=== PATIENT | female | born 1975 | race Caucasian/White ===

== ENCOUNTER → 2020-08-22 12:07 | Outpatient (BNVA) | payer OTHER, SELFPAY | PROVIDERS: PCP Physician Assistant; Visit Provider Surgery | DX: Z01.818 Encounter for other preprocedural examination (principal); E66.9 Obesity, unspecified; E66.01 Morbid (severe) obesity due to excess calories; R06.02 Shortness of breath; K91.2 Postsurgical malabsorption, not elsewhere classified; Z90.3 Acquired absence of stomach [part of] ==

== ENCOUNTER 2020-08-29 09:25 | Outpatient (REF) | payer OTHER, SELFPAY ==
--- NOTE | ~2020-08-29 | XR_ITS ---
EXAMINATION: XR CHEST CLINICAL INFORMATION: Shortness of breath. COMPARISON: None TECHNIQUE: Two views of the chest were obtained. FINDINGS: There is no evidence of acute parenchymal disease, pneumothorax, or pleural effusion. Heart normal size. No evidence of pulmonary edema. There is unfolding of the thoracic aorta. XR/XR chest 2V IMPRESSION: No acute disease.
--- NOTE | 2020-08-29 10:21 | ECG_ITS ---
Test Reason : SOB Blood Pressure : / mmHG Vent. Rate : 080 BPM Atrial Rate : 080 BPM P-R Int : 172 ms QRS Dur : 100 ms QT Int : 400 ms P-R-T Axes : 053 -01 017 degrees QTc Int : 461 ms Normal sinus rhythm Normal ECG No previous ECGs available Referred By: Angie Bunch Electronically Signed By:SIA MASTERS MD
[2020-08-29 10:32] LABS: MANUAL DIFF FLAG NO
[2020-08-29 10:39] LABS: Basophils Absolute Auto 0.1 X10*3/uL (0.0-0.2); Basophils Percent Auto 0.6 % (0-2); Eosinophils Absolute Auto 0.3 X10*3/uL (0.0-0.4); Eosinophils Percent Auto 4.2 % (0-4); Hematocrit 40.4 % (37-47); Hemoglobin 12.6 g/dl (12.0-16.0); Imm Gran Abs Auto 0.03 X10*3/uL (0.00-0.03); Imm Gran Pct Auto 0.4 % (0.0-0.4); Lymphocytes Absolute Auto 2.7 X10*3/uL (1.2-4.9); Lymphocytes Percent Auto 33.7 % (20-40); Mean Corpuscular HGB Conc 31.2 g/dl (31.0-35.0); Mean Corpuscular Hemoglobin 28.8 pg (27.0-33.0); Mean Corpuscular Volume 92.4 fL (80-98); Mean Platelet Volume 10.5 fL (9.4-12.3); Monocytes Absolute Auto 0.5 X10*3/uL (0.1-1.2); Neutrophils Absolute Auto 4.3 X10*3/uL (2.0-8.3); Neutrophils Percent Auto 55.1 % (45-73); Platelet Count 336 X10*3/uL (160-400); Red Blood Count 4.37 X10*6/uL (4.20-5.50); Red Cell Distribution Width 15.7 % (11.0-16.0); White Blood Count 7.9 X10*3/uL (4.8-10.8)
[2020-08-29 11:07] LABS: Alanine Aminotransferase 16 U/L (0-31); Albumin Level 4.2 g/dL (3.5-5.0); Alkaline Phosphatase 87 U/L (39-117); Anion Gap 13 (12-20); Aspartate Amino Transferase 16 U/L (5-31); Bilirubin Total 0.3 mg/dL (0.0-1.0); Blood Urea Nitrogen 13 mg/dL (9-16); C Reactive Protein 2.98 mg/dL (< or = 0.50); Calcium 9.7 mg/dL (8.4-10.2); Carbon Dioxide 31 mmol/L (22-29); Chloride 102 mmol/L (96-108); Cholesterol 253 mg/dL; Estimated Glomerular Filt Rate > 60; Glucose Fasting 99 mg/dL (60-99); HDL Cholesterol 61 mg/dL; Iron 69 mcg/dL (30-160); LDL Cholesterol Calculated 182 mg/dl; Percent Iron Saturation 20 % (15-50); Potassium 4.6 mmol/L (3.3-5.1); Sodium 141 mmol/L (135-145); Total Iron Binding Capacity 343 mcg/dL (228-428); Total Protein 7.5 g/dL (6.5-8.0); Triglycerides 53 mg/dL; Unsaturated Iron Binding 274 ug/dL
[2020-08-29 11:15] LABS: Estimated Average Glucose 100 mg/dL; Hemoglobin A1c % 5.1 %
[2020-08-29 11:33] LABS: Vitamin D 25-OH Total 29.6 ng/mL (>30)
[2020-08-29 11:44] LABS: Vitamin B12 701 pg/mL (200-900)
[2020-08-30 13:12] LABS: Calcium (PTHI) 9.7 mg/dL (8.6-10.2); PTHI 58 pg/mL (14-64)
[2020-08-30 13:38] LABS: H Pylori Breath Test NOT DETECTED (NOT DETECTED)
[2020-09-01 06:17] LABS: Zinc 88 mcg/dL (60-130)
[2020-09-02 00:06] LABS: Vitamin A 38 mcg/dL (38-98)
[2020-09-03 13:12] LABS: Vitamin B1 36 nmol/L (8-30)
== END 2020-08-29 09:26 | disposition home or self-care (01) ==
LOC: HO.LAB 09:25
PROVIDERS: PCP Physician Assistant; Visit Provider Surgery
DX: Z01.818 Encounter for other preprocedural examination (principal); K91.2 Postsurgical malabsorption, not elsewhere classified; Z90.3 Acquired absence of stomach [part of]; R06.02 Shortness of breath
CPT/HCPCS: 36415; 71046; 80053; 80061; 82306; 82607; 83013; 83036; 83540; 83970; 84425; 84443; 84590; 84630; 85025; 86140; 93005

== ENCOUNTER → 2020-09-08 08:45 | Outpatient (BNVA) | payer OTHER, SELFPAY | PROVIDERS: PCP Physician Assistant; Visit Provider Physician Assistant ==

== ENCOUNTER → 2020-09-22 08:09 | Outpatient (BNVA) | payer OTHER, SELFPAY | PROVIDERS: PCP Physician Assistant; Visit Provider Dietitian, Registered | DX: E66.9 Obesity, unspecified (principal); Z68.43 Body mass index [BMI] 50.0-59.9, adult | CPT/HCPCS: 97802 ==

== ENCOUNTER → 2020-09-23 11:24 | Outpatient (BNVA) | payer OTHER, SELFPAY | PROVIDERS: PCP Physician Assistant; Referring Provider Physician Assistant; Visit Provider Physician Assistant ==

== ENCOUNTER → 2020-10-06 09:57 | Outpatient (BNVA) | payer OTHER, SELFPAY | PROVIDERS: PCP Physician Assistant; Referring Provider Physician Assistant; Visit Provider Surgery ==

== ENCOUNTER → 2021-02-15 09:37 | Outpatient (BNVA) | payer OTHER, SELFPAY | PROVIDERS: PCP Internal Medicine; Referring Provider Internal Medicine; Visit Provider Physician Assistant Surgical ==